=== PATIENT | male | born 1980 ===

== ENCOUNTER 2021-03-19 23:08 | Inpatient (IN) | payer SELFPAY ==
[2021-03-19 23:33] VITALS: BP 144/89; PULSE 88; RESP 18; TEMP 36.6; O2SAT 99
[2021-03-19 23:35] VITALS: BMI 21.4
[2021-03-20 06:00] VITALS: BP 111/73; PULSE 78; RESP 17; TEMP 36.9; O2SAT 98
--- NOTE | 2021-03-20 08:52 | PM.NPN ---
Vitals/I&O/Wt Last Vital Signs Temp 98.4 F 03/20/21 06:00 Pulse 78 03/20/21 06:00 Resp 17 03/20/21 06:00 BP 111/73 03/20/21 06:00 Pulse Ox 98 03/20/21 06:00 Weight last 48 hrs Weight 83.915 kg Weight 83.915 kg Involuntary Hold Information 96 Hour Hold: 96 Hour Involuntary Admission: No Coding Level of Care Code Acute Equipment [id number] for Yolande Cohen
--- NOTE | 2021-03-20 09:45 | P.HP_ITS ---
Providers/Chief Complaint Admitting Physician: Leonid Stiles MD Chief Complaint: SI with a plan HPI NPU History of Present Illness Anthony Billings is a 40 year old male transferred from the emergency room at [facility] in [facility] due to auditory and visual hallucinations, including commands to kill himself. The patient was medically stabilized and cleared prior to transfer. ED notes from [facility]: Patient is a 40-year-old male who presents to the emergency department because he has been hearing voices. Patient states he thinks he is hearing voices/seei ng fairies/angels either because he is having a sikh experience or because of drug use. Patient started using meth for the first time a couple of months ago. Prior to 2 months ago he had not used meth, but had used heroin and cocaine. Last use of methamphetamine was 3 to 4 days ago. Patient states that after his last use, that is when the fairies told me that it was my last sin and I would go to hel. Since that time the fairies have been bothering him nonstop and torturing him. He states he has not slept in 2 to 3 days because of the constant harassment. Patient reports that the fairies have not instructed him to hurt other people or instructed him to hurt himself. However, they did say he can go ahead and kill himself, since he would go to hell anyway. Patient states he does not want to kill himself or , and became scared, which is why he is seeking care in the emergency department today. In the past 2 weeks he also stopped using his Suboxone and quit smoking cigarettes to help repent his sense at the direction of the fairies. Another note from 03/19/2021 says, stated reason for visit: I am here because I am having a mental break I think. I was using meth off and on and I hear voices, fairies that tell me to join them and telling me what to do to join them. The voices were scaring me this morning... Patient states that he has been pretty depressed lately and lost his job, broke up with his girlfriend, does not have a place to live. An affidavit from Elizabeth Arreola of [place], [place] from 03/19/2021 states: Anthony stated to me that fairies have entered my body and there tormenting me. Anthony said they are telling me to get my gun and blow my head off. Anthony said they will not let me eat or sleep and they are making me pee and poop my pants. I believe that he is a danger to himself and he needs to be admitted. Records from [facility] include: EKG from 03/19/2021 that shows normal sinus rhythm and right atrial enlargement. Rapid Covid test was negative. CBC was normal. CMP showed hyponatremia with a sodium of 134, and hyperglycemia, with a blood sugar of 181. TSH was low at 0.295 (0.465?4.680) Free T4 is normal at 1.36. UA was normal. Urine tox screen was negative for all substances tested, including opiates, oxycodone, methadone, propoxyphene, barbiturates, tricyclic's, phencyclidine, amphetamine, methamphetamines, benzodiazepines, cocaine, and marijuana. Alcohol test was negative. The patient says he started using meth again about 6 months ago, smoking, snorting, and shooting it, as well as taking it per rectum as a booty bump. The meth gives him energy, focus, and a release. He started hearing voices a little bit after that, and they have been demonic, nelson, as well as fairies who he says do lustful things with me. Initially this was enjoyable then turned scary. He says he stopped using meth 4-5 days ago, and the voices stopped yesterday afternoon. He says his mood has been alright, tired. Denies feeling depressed. He denies feeling suicidal now. The patient says he has been in residential substance use treatment about 10 times, the last time being in 2017 in [place], [place]. He was using crack, heroin, and alcohol at that time. He says he has a marijuana medical card prescribed for HIV symptoms. He says it helps him eat, sleep and with pain. He smokes about 2 bowls a day. He has had 1 DUI in 2013. The patient says he has not had much psychiatric treatment. He was first hospitalized at age 19 with suicidal ideation and apparent drug overdose. This is his second psychiatric hospitalization. In 2006 he was prescribed Depakote which produced unpleasant side effects, and which he did not take for long. He has not been in therapy. He has not been taking any psychiatric medications. Psychiatric history: As above. Substance use history: As above. Family history: Patient says his mother has bipolar depression and alcoholism. His maternal gra ndmother is an alcoholic. There is no family history of suicide attempts or completions in the family. Psychosocial history: The patient says he grew up in the [place] area and now lives in [facility]. He graduated from high school and got a basketball scholarship to college, but dropped out soon after arriving. He has 1 daughter who lives in [place] with her mother and they do not have much contact. He has never been . 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 He is in contact with his father, who is an medical insurance coder. He does his father money for having bailed him out on a number of occasions. Legal history: He has an outstanding warrant in [place] for driving on a revoked license. He has a plan to earn money and take care of those charges. Medical history: The patient has HIV, and otherwise does not have any significant medical history. He says he needs to get back on his HIV medication, and can do so through a clinic in [place], where he is followed. Review of Systems General: Reports: 10 or more systems reviewed and unremarkable except in HPI and below Meds NPU Home Medications Medication Instructions Recorded Confirmed Last Taken Type No Known Home Medications 03/20/21 03/20/21 Unknown History Allergies Allergy/AdvReac Type Severity Reaction Status Date / Time No Known Allergies Allergy Verified 03/20/21 00:29 Mental Status Exam MSE Comments: I met with the patient in his room, and he was dressed in hospital scrubs and appropriately groomed. He was calm, cooperative, interactive, and made good eye contact. He was grateful for the assistance. No psychomotor agitation or retardation. Speech is at a regular rate and rhythm, normal volume, good articulation, not pressured. Alert, oriented to person, place, time, situation. Attention and concentration were intact. Able to spell the word WORLD correctly forwards and backwards. Memory shows some impairment. Remembers 3/3 words immediately and 1/3 at 3 minutes. He knows the names of the past 5 presidents. Mood is depressed and anxious. Affect is pleasant. Thought process is logical and goal-directed. Thought content: Denies auditory and visual hallucinations today. They were last present yesterday morning. No delusions noted. No current suicidal ideation, and no homicidal ideation. Insight and judgment appear to be limited at times.. Vitals/I&O/Wt Last Vital Signs Temp 98.4 F 03/20/21 06:00 Pulse 78 03/20/21 06:00 Resp 17 03/20/21 06:00 BP 111/73 03/20/21 06:00 Pulse Ox 98 03/20/21 06:00 Weight last 48 hrs Weight 83.915 kg Weight 83.915 kg A&P Assessment and plan (1) Methamphetamine abuse: Status: Acute (2) Methamphetamine-induced psychotic disorder: Status: Acute Additional A&P Information Anthony Billings is a 40 year old male transferred from the emergency room at [facility] in [facility] due to auditory and visual hallucinations, including commands to kill himself. 1. Continue current medication. 2. Continue every 15 minute checks for safety. 3. Encourage individual, group and milieu therapies. 4. Encourage sober living treatment after discharge at the highest level of care to which he is willing to commit. Involuntary Hold Information 96 Hour Hold: 96 Hour Involuntary Admission: No Attestations NPU Medical Necessity Statement*: Psychiatric hospitalization is medically necessary to prevent access to lethal means, to reevaluate medication, and to coordinate a safe discharge. Patient will be in the hospital for over 2 midnights. Likely length of stay is 3 to 5 days. 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
[2021-03-20 14:00] VITALS: BP 152/78; PULSE 79; RESP 18; TEMP 36.1; O2SAT 100
[2021-03-20 21:12] VITALS: BP 115/70; PULSE 66; RESP 15; TEMP 37; O2SAT 97
[2021-03-21 06:00] VITALS: BP 112/72; PULSE 63; RESP 17; TEMP 36.4; O2SAT 98
[2021-03-21 13:24] VITALS: BP 114/73; PULSE 70; RESP 17; TEMP 36.4; O2SAT 98
--- NOTE | 2021-03-21 14:31 | NPU.GN ---
[facility] Unit Group Topic:Coping skills for stress General Mood of Group: Familia did not participate in group today, he stated that he did not sleep well last night. He stated that he will attend group tomorrow after some rest.
--- NOTE | 2021-03-21 15:49 | P.DS_ITS ---
Diagnoses at Discharge Discharge Diagnosis (1) Methamphetamine abuse: Status: Chronic (2) Methamphetamine-induced psychotic disorder: Status: Resolved Reason for Visit Reason for Visit: SI with a plan Brief History: Anthony Billings is a 40 year old male transferred from the emergency room at [facility] in [facility] due to auditory and visual hallucinations, including commands to kill himself. The patient was medically stabilized and cleared prior to transfer. ED notes from [facility]: Patient is a 40-year-old male who presents to the emergency department because he has been hearing voices. Patient states he thinks he is hearing voices/seeing fairies/angels either because he is having a orthodoxy experience or because of drug use. Patient started using meth for the first time a couple of months ago. Prior to 2 months ago he had not used meth, but had used heroin and cocaine. Last use of methamphetamine was 3 to 4 days ago. Patient states that after his last use, that is when the fairies told me that it was my last sin and I would go to hel. Since that time the fairies have been bothering him nonstop and torturing him. He states he has not slept in 2 to 3 days because of the constant harassment. Patient reports that the fairies have not instructed him to hurt other people or instructed him to hurt himself. However, they did say he can go ahead and kill himself, since he would go to hell anyway. Patient states he does not want to kill himself or , and became scared, which is why he is seeking care in the emergency department today. In the past 2 weeks he also stopped using his Suboxone and quit smoking cigarettes to help repent his sense at the direction of the fairies. Another note from 03/19/2021 says, stated reason for visit: I am here because I am having a mental break I think. I was using meth off and on and I hear voices, fairies that tell me to join them and telling me what to do to join them. The voices were scaring me this morning... Patient states that he has been pretty depressed lately and lost his job, broke up with his girlfriend, does not have a place to live. An affidavit from Elizabeth Arreola of [place], [place] from 03/19/2021 states: Anthony stated to me that fairies have entered my body and there tormenting me. Anthony said they are telling me to get my gun and blow my head off. Anthony said they will not let me eat or sleep and they are making me pee and poop my pants. I believe that he is a danger to himself and he needs to be admitted. Records from [facility] include: EKG from 03/19/2021 that shows normal sinus rhythm and right atrial enlargement. Rapid Covid test was negative. CBC was normal. CMP showed hyponatremia with a sodium of 134, and hyperglycemia, with a blood sugar of 181. TSH was low at 0.295 (0.465?4.680) Free T4 is normal at 1.36. UA was normal. Urine tox screen was negative for all substances tested, including opiates, oxycodone, methadone, propoxyphene, barbiturates, tricyclic's, phencyclidine, amphetamine, methamphetamines, benzodiazepines, cocaine, and marijuana. Alcohol test was negative. The patient says he started using meth again about 6 months ago, smoking, snorting, and shooting it, as well as taking it per rectum as a booty bump. The meth gives him energy, focus, and a release. He started hearing voices a little bit after that, and they have been demonic, nelson, as well as fairies who he says do lustful things with me. Initially this was enjoyable then turned scary. He says he stopped using meth 4-5 days ago, and the voices stopped yesterday afternoon. He says his mood has been alright, tired. Denies feeling depressed. He denies feeling suicidal now. The patient says he has been in residential substance use treatment about 10 times, the last time being in 2017 in [place], [place]. He was using crack, heroin, and alcohol at that time. He says he has a marijuana medical card prescribed for HIV symptoms. He says it helps him eat, sleep and with pain. He smokes about 2 bowls a day. He has had 1 DUI in 2013. The patient says he has not had much psychiatric treatment. He was first hospitalized at age 19 with suicidal ideation and apparent drug overdose. This is his second psychiatric hospitalization. In 2006 he was prescribed Depakote which produced unpleasant side effects, and which he did not take for long. He has not been in therapy. He has not been taking any psychiatric medications. Hospital Course Hospital Course Anthony Billings is a 40 year old male transferred from the emergency room at [facility] in [facility] due to auditory and visual hallucinations, including commands to kill himself. He was admitted to the neuropsychiatric unit for definitive treatment of these issues. On the unit he slowly acclimated to the individual, group and milieu therapies. There were some mild psychotic symptoms present initially which resolved with gentle time off of methamphetamine. He became interested in reading his Bible, and was often same reading it on the unit. He has plans to start a new job in [place], [place], and has coordinated with his employer to be there at the end of the week. He is not interested in substance use rehab at the moment, because his work schedule will not allow it. He feels it is more important for him to work at our at the moment. He was receptive to treatment team recommendations and showed modest improvement and was able to contract for safety prior to discharge. During the hospitalization, patient had routine laboratory studies which were within normal limits except for few outliers. Additionally there was a general medical evaluation which was also within normal limits and revealed no new acute processes. Discharge Summary: At the time of discharge, psychosis and lethality were denied. Mood and anxiety were well managed. Patient endorsed a plan to avoid all drugs of abuse and follow-up with the aftercare recommendations of the treatment team. Patient was evaluated and deemed to be absent credible lethality, and had achieved the maximum benefit from an inpatient hospitalization, so was discharged. Involuntary Hold Information 96 Hour Hold: 96 Hour Involuntary Admission: No Mental Status Exam MSE Comments: I met with the patient in his room, and he was calm, cooperative, interactive, and made good eye contact. He has a pleasant and optimistic attitude. No psychomotor agitation or retardation. Speech is at a regular rate and rhythm, normal volume, good articulation, not pressured. Alert, oriented to person, place, time, situation. Attention and concentration were intact. Memory shows some impairment. Mood is depressed and anxious. Affect is pleasant. Thought process is logical and goal-directed. Thought content: He denies auditory and visual hallucinations. No delusions are noted. He denies suicidal and homicidal ideation. Insight and judgment are improved. Discharge Data Vitals: Last Vital Signs Temp 97.6 F 03/21/21 13:24 Pulse 70 03/21/21 13:24 Resp 17 03/21/21 13:24 BP 114/73 03/21/21 13:24 Pulse Ox 98 03/21/21 13:24 Discharge Plan Discharge Patient Disposition: Home Condition: Stable Prescriptions: No Action No Known Home Medications RF: 0 Discharge Orders: Discharge Order (Routine); Ordered 03/21/21 Ordered By: Leonid Stiles Discharge Diet: Usual diet Discharge Activity: Resume usual activity Patient Instructions: Generalized Anxiety Disorder (DC), Opioid Safety Discharge Attestations NPU Time Spent in Discharge Care*: less than 30 min Specific Discharge Activities: Specific discharge activities: educating patient, discussing with case making machine operator/social workers/dc planners, docu menting/other paperwork and evaluating patient/reviewing data Status at Discharge: Cognitive status at discharge: cognitively intact , Behavioral status at discharge: cooperative , Functional status at discharge: independent ambulation Overall status at discharge: patient is back to baseline Coding Level of Care Code Acute Chg FW DC note Diagnoses Methamphetamine abuse F15.10 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
[2021-03-21 15:53] VITALS: BP 114/73; PULSE 70; RESP 17; TEMP 36.4; O2SAT 98
[2021-03-21] MEDS: nicotine 2 mg Gum BUCCAL (17:13)
== END 2021-03-21 17:22 | disposition home or self-care (01) | DRG 897 ==
PROVIDERS: Admitting Provider Psychiatry & Neurology Child & Adolescent Psychiatry; Visit Provider Psychiatry & Neurology Child & Adolescent Psychiatry
DX: F15.151 Other stimulant abuse with stimulant-induced psychotic disorder with hallucinations (principal); B20 Human immunodeficiency virus [HIV] disease; Z81.8 Family history of other mental and behavioral disorders; Z81.1 Family history of alcohol abuse and dependence; Z65.3 Problems related to other legal circumstances